=== PATIENT | male | born 1950 | race Caucasian/White ===

== ENCOUNTER 2021-06-29 11:57 | Emergency (ER) | payer MEDICARE, BC, OTHER ==
[~2021-06-29] VITALS: Ht 167.6 cm; Wt 75.3 kg
--- NOTE | 2021-06-29 12:28 | NUR ---
TO ER BED 2, C/O CHEST PAIN X2DAYS, NO INJURY, AAOX3, BREATHING EVEN AND NON LABORED. SEEN BY DR GARCIA
--- NOTE | 2021-06-29 12:38 | NUR ---
CIRCULAR SAWYER STONE AT BEDSIDE
[2021-06-29 12:56] LABS: BASOPHILS % (AUTO) 0.3 % (0.0-2.0); EOSINOPHILS % (AUTO) 1.9 % (0.0-6.0); HEMATOCRIT 46 % (39-51); HEMOGLOBIN 15.4 g/dL (13.5-17.5); LYMPHOCYTES # (AUTO) 1.4 K/uL (0.8-4.8); MEAN CORPUSCULAR HGB CONC 34 g/dl (31.0-36.0); MEAN CORPUSCULAR VOLUME 89 fL (80-96); MONOCYTES # (AUTO) 0.5 K/uL (0.1-1.30); MONOCYTES % (AUTO) 6.8 % (2.0-12.0); NEUTROPHILS # (AUTO) 5.2 K/uL (1.8-8.9); PLATELET COUNT (AUTO) 211 K/uL (150-450); RED BLOOD CELL COUNT(AUTO) 5.13 MIL/uL (4.5-6.0); WHITE BLOOD COUNT (AUTO) 7.2 K/uL (4.3-11.0)
[2021-06-29 13:05] LABS: CALCIUM, SERUM 8.4 mg/dL (8.5-10.1); CARBON DIOXIDE 31 mmol/L (21-32); CHLORIDE 106 mmol/L (98-107); CREATININE 0.8 mg/dL (0.6-1.3); GLUCOSE 94 mg/dL (74-106); POTASSIUM 4.6 mmol/L (3.5-5.1); SODIUM SERUM 141 mmol/L (136-145); UREA NITROGEN, BLOOD 21 mg/dL (7-18)
[2021-06-29] MEDS ORDERED: ACETAMINOPHEN 325 MG TABLET PO ONE (15:30)
[2021-06-29] MEDS ORDERED: ACETAMINOPHEN 325 MG TABLET ONE (15:31)
--- NOTE | 2021-06-29 17:16 | NUR ---
TRANSPORT ARRANGED THROUGH [facility] [phone] ETA 1900. GOINT TO [facility]
--- NOTE | 2021-06-29 17:55 | NUR ---
Patient discharged to home VIA AMBULANCE in stable condition. Written and verbal after care instructions given. Patient verbalizes understanding of instruction.
[2021-06-29 17:56] VITALS: BP 127/79
== END 2021-06-29 17:56 | disposition home or self-care (01) ==
LOC: ER 12:38
DX: R07.89 Other chest pain (principal); F03.90 Unspecified dementia, unspecified severity, without behavioral disturbance, psychotic disturbance, mood disturbance, and anxiety; M19.90 Unspecified osteoarthritis, unspecified site; F25.9 Schizoaffective disorder, unspecified; F31.9 Bipolar disorder, unspecified
CPT/HCPCS: 36415; 71100-TC; 80048-TC; 84484-TC; 85025-TC; 85378-TC